=== PATIENT | female | born 2000 | race African-American/Black ===

== ENCOUNTER 2024-07-31 23:27 | Emergency (ER) | payer OTHER ==
[~2024-07-31] VITALS: Ht 162.6 cm; Wt 76.5 kg
[2024-08-01 02:19] LABS: BASO # 0.1 10^3/uL (0.0-0.2); BASO % 0.7 % (0.0-1.0); EOS # 0.1 10^3/uL (0.0-0.5); EOS % 0.9 % (0.0-3.0); HEMATOCRIT 42.8 % (36.0-47.0); HEMOGLOBIN 14.5 g/dl (12.0-15.5); LYMPH # 2.9 10^3/uL (1.5-5.0); LYMPH % 42.4 % (24.0-44.0); MEAN CORPUSCULAR HEMOGLOBIN 28.7 pg (27.0-33.0); MEAN CORPUSCULAR HGB CONC 33.9 g/dl (32.0-36.5); MEAN CORPUSCULAR VOLUME 84.8 fl (80.0-96.0); MONO # 0.5 10^3/uL (0.0-0.8); MONO % 7.7 % (2.0-8.0); NEUTROPHILS # 3.3 10^3/uL (1.5-8.5); NEUTROPHILS % 48.2 % (36.0-66.0); PLATELET COUNT, AUTOMATED 208 10^3/uL (150-450); RED BLOOD COUNT 5.05 10^6/uL (4.00-5.40); WHITE BLOOD COUNT 6.8 10^3/uL (4.0-10.0)
[2024-08-01 02:49] LABS: LIPASE 40 U/L (12-53)
[2024-08-01 02:50] LABS: ALKALINE PHOSPHATASE 75 U/L (46-116); ALT/SGPT 22 U/L (7.0-40); AST/SGOT 14 U/L (<34); BILIRUBIN,DIRECT 0.2 MG/DL (<0.4); BILIRUBIN,TOTAL 0.7 MG/DL (0.3-1.2); BLOOD UREA NITROGEN 10 MG/DL (9-23); CALCIUM LEVEL 9.2 MG/DL (8.5-10.1); CARBON DIOXIDE LEVEL 28 MMOL/L (20-31); CHLORIDE LEVEL 104 MMOL/L (98-107); CREATININE FOR GFR 0.93 MG/DL (0.55-1.30); GLOMERULAR FILTRATION RATE > 60.0 (>60); GLUCOSE, FASTING 93 MG/DL (60-100); POTASSIUM SERUM 4.3 MMOL/L (3.5-5.1); SODIUM LEVEL 136 MMOL/L (136-145); TOTAL PROTEIN 7.5 G/DL (5.7-8.2)
[2024-08-01] MEDS: ONDANSETRON 4MG 2ML VIAL IV ONE (05:12)
[2024-08-01] MEDS: KETOROLAC 30 MG/ML 1ML VIAL IV ONE (05:13)
[2024-08-01] MEDS: GASTROGRAFIN SOLUTION 30ML PO SCH (05:22)
[2024-08-01 06:09] LABS: HCG, SERUM QUALITATIVE NEGATIVE (NEGATIVE)
[2024-08-01] MEDS ORDERED: ISOVUE-370 76% 100ML VIAL As Ordered ONE (06:41)
[2024-08-01] MEDS: SUCRALFATE SUSP 1GM/10ML UD PO ONE (07:21)
[2024-08-01] MEDS: PANTOPRAZOLE 40MG VIAL IV ONE (07:21)
[2024-08-01] MEDS ORDERED: PANT20TA51 PO (07:37)
[2024-08-01 08:21] VITALS: BP 108/70; TEMP 97.4; O2SAT 98
== END 2024-08-01 08:23 | disposition home or self-care (01) ==
LOC: M ED 23:27
DX: K21.9 Gastro-esophageal reflux disease without esophagitis (principal)
CPT/HCPCS: 74177; 80048; 80076; 83690; 84703; 85025; 87486; 87581; 87633; 87798; 96374; 96375; 99284; J1885; J2405; J2470; Q9963; Q9967

== ENCOUNTER 2024-08-29 09:30 | Emergency (ER) | payer OTHER ==
[~2024-08-29] VITALS: Ht 162.6 cm; Wt 81.1 kg
[~2024-08-29 09:30] MED LIST: PANT20TA51 PO
[2024-08-29 11:56] LABS: BASO % 0.6 % (0.0-1.0); EOS % 0.6 % (0.0-3.0); HEMATOCRIT 42.9 % (36.0-47.0); HEMOGLOBIN 14.1 g/dl (12.0-15.5); LYMPH # 1.9 10^3/uL (1.5-5.0); MEAN CORPUSCULAR HGB CONC 32.9 g/dl (32.0-36.5); MEAN CORPUSCULAR VOLUME 85.3 fl (80.0-96.0); MONO # 0.5 10^3/uL (0.0-0.8); MONO % 6.4 % (2.0-8.0); NEUTROPHILS # 4.8 10^3/uL (1.5-8.5); NEUTROPHILS % 66.3 % (36.0-66.0); PLATELET COUNT, AUTOMATED 212 10^3/uL (150-450); RED BLOOD COUNT 5.03 10^6/uL (4.00-5.40); WHITE BLOOD COUNT 7.2 10^3/uL (4.0-10.0)
[2024-08-29 12:16] LABS: BLOOD UREA NITROGEN 12 MG/DL (9-23); CALCIUM LEVEL 9.7 MG/DL (8.5-10.1); CARBON DIOXIDE LEVEL 29 MMOL/L (20-31); CHLORIDE LEVEL 105 MMOL/L (98-107); GLOMERULAR FILTRATION RATE > 60.0 (>60); GLUCOSE, FASTING 73 MG/DL (60-100); POTASSIUM SERUM 4.1 MMOL/L (3.5-5.1); SODIUM LEVEL 140 MMOL/L (136-145)
[2024-08-29 12:17] LABS: HCG, SERUM QUALITATIVE NEGATIVE (NEGATIVE)
[2024-08-29 12:44] LABS: HIV 1&2 SCREEN NEGATIVE (NEGATIVE)
[2024-08-29] MEDS: IBUPROFEN 800 MG TAB PO ONE (12:55)
[2024-08-29 13:31] VITALS: BP 122/83; TEMP 98.7; O2SAT 100
== END 2024-08-29 13:34 | disposition home or self-care (01) ==
LOC: M ED 09:30
DX: N93.8 Other specified abnormal uterine and vaginal bleeding (principal); Z79.899 Other long term (current) drug therapy